=== PATIENT | male | born 1965 | race African-American/Black ===

== ENCOUNTER → 2019-02-05 11:05 | Outpatient (CLI) | payer OTHER ==
--- NOTE | 2019-02-11 13:29 | EC ---
PATIENT:ROSE MARY MENDOZA DATE OF SERVICE: 02/05/19 SEX: M MEDICAL RECORD: [id number] DATE OF : [birth year] LOCATION:D.[facility]ERLY [facility] [place] AGE OF PATIENT: 54 ADMISSION DATE: 02/05/19 REFERRING PHYSICIAN: INTERPRETING PHYSICIAN: AVILA DAMIAN MD ECHOCARDIOGRAM REPORT ECHO CHARGES 4 ECHO COMPLETE Date: 02/05/19 CLINICAL DIAGNOSIS: HEART MURMUR ECHOCARDIOGRAPHIC MEASUREMENTS (adult normal given) AC root (d.<3.7cm) 2.9 cm LV Septum d (<1.2 cm> 1.5 cm Valve Excursion 1.6 cm LV Septum (systole) 1.7 cm Left Atria (s.<4.0cm> 3.2 cm LVPW d(<1.2cm) 1.6 cm RV (d.<2.3cm) 3.2 cm LVPW (sytole) 2.0 cm LV diastole(<5.6CM) 4.3 cm MV E-F(>70mm/sec) cm LV systole 2.8 cm LVOT Diameter 1.9 cm MV exc.(>10mm) 1.1 cm Est.ejection fraction (50-75%) % DOPPLER: LVIT cm/sec A 90.0 cm/sec E 75.0 cm/sec LA cm/sec RVSP 22 mmHg LVOT 107 cm/sec AOP1/2T m/s Asc. Ao 165 cm/sec RVOT 70 cm/sec RA cm/sec PA cm/sec AV Gradient Peak 10.95mmHg AV Mean 5.94 mmHg AV Area 1.9 cm MV Gradient Peak 3.51 mmHg MV Mean 1.69 mmHg MV Area cm COMMENTS: Voice Professor: 2 JENNIFER INFANTE Dish Washer: 3 Dr. Means TAPE# PACS Pericardial Effusion N DATE OF SERVICE: Adequate 2D, color flow, spectral Doppler, and M-mode. LVH is present. LV internal dimensions are normal. Wall motion is normal. EF is greater than or equal to 55%. Aortic valve is tricuspid. No evidence of stenosis by Doppler interrogation. Left atrium is normal at 3.2 cm. Mitral valve shows no prolapse. Trace MR. Right-sided chambers grossly normal. Trace TR. TRANSINT:[id number] Voice Confirmation ID: [id number] DOCUMENT ID: [id number] ECHOCARDIOGRAM REPORT [id number] REJI,ROSE MARY DAMIAN,AVILA Faith MD at 1329 CC: [id number] DICTATION DATE: 02/07/19 1310 DIE CLEANER: 02/07/19 1326 DEP CLI 02/05/19 [facility] [address] [place] [address]
== END | disposition home or self-care (01) ==
LOC: D.HCCECHO 11:05
PROVIDERS: ATTEND Internal Medicine Interventional Cardiology
DX: R01.1 Cardiac murmur, unspecified (principal)